=== PATIENT | female | born 1965 | race Native Hawaiian/Other Pacific Islander ===

== ENCOUNTER 2017-01-11 11:02 | Emergency (ER) | payer OTHER ==
[2017-01-11 11:08] VITALS: BP 120/76; PULSE 69; RESP 18; TEMP 97.9; O2SAT 100
--- NOTE | 2017-01-11 11:34 | C.PDOC ---
History Of Present Illness L ELBOW AREA PAIN X 1 DAY. WORSE W FLEXION, ROTATION. NO TRAUMA. PRIOR HO TENNIS ELBOW. LIMITED RELIEF W TYLENOL. NO SWELLING, REDNESS EXAM MILD DIST EXT L ELBOW REPRODUC PAIN W FLEXION, SUPINATION. NO TEND. ATRAUM. NO SWELL AROM WO DIFF SKIN WNL Time Seen by Provider: 01/11/17 11:22 Chief Complaint (Nursing): Upper Extremity Problem/Injury History Per: Patient History/Exam Limitations: no limitations Onset/Duration Of Symptoms: Days (1) Past Medical History Reviewed: Historical Data, Nursing Documentation, Vital Signs Vital Signs: Last Vital Signs Temp 97.9 F 01/11/17 11:05 Pulse 69 01/11/17 11:05 Resp 18 01/11/17 11:05 BP 120/76 01/11/17 11:05 Pulse Ox 100 01/11/17 11:36 - [facility] Procedures TETANUS TOXOID ADMINIST (08/15/14) Family History: States: No Known Family Hx - Social History Hx Tobacco Use: No Hx Alcohol Use: No Hx Substance Use: No - Immunization History Hx Tetanus Toxoid Vaccination: Yes Hx Influenza Vaccination: Yes Hx Pneumococcal Vaccination: Yes Review Of Systems Except As Marked, All Systems Reviewed And Found Negative. Musculoskeletal: Positive for: Other ((+) Left elbow pain ). Negative for: Neck Pain, Back Pain Neurological: Negative for: Weakness, Numbness Physical Exam - Physical Exam Appears: Non-toxic, In Acute Distress (Mild) Skin: Warm, Dry, No Rash Head: Atraumatic, Normacephalic Oral Mucosa: Moist Neck: Normal, Normal ROM, Supple Respiratory: Normal Breath Sounds Extremity: Capillary Refill (<2 secs), Other ((+) Left elbow reproducible pain with flexion and supination. No tenderness. No swelling. ) Neurological/Psych: Oriented x3, Normal Speech, Normal Motor ED Course And Treatment O2 Sat by Pulse Oximetry: 100 (RA) Pulse Ox Interpretation: Normal Medical Decision Making Medical Decision Making: PLAN: * Toradol IM Disposition Counseled Patient/Family Regarding: Diagnosis, Need For Followup, Rx Given - Disposition Referrals: YOUR,PMD [Other] Disposition: HOME/ ROUTINE Disposition Time: 11:34 Condition: IMPROVED Prescriptions: Naproxen 500 mg PO BID #30 tab Instructions: Tendinitis (ED) Forms: [employer] (Maltese), School Excuse, Work Excuse - Clinical Impression Clinical Impression: Tendonitis - Scribe Statement The provider has reviewed the documentation as recorded by the Scribe Ade Toribio Provider Attestation: All medical record entries made by the Vickieibe were at my direction and personally dictated by me. I have reviewed the chart and agree that the record accurately reflects my personal performance of the history, physical exam, medical decision making, and the department course for this patient. I have also personally directed, reviewed, and agree with the discharge instructions and disposition. Orthopedic Care Application Of:: [facility]
== END 2017-01-11 11:39 | disposition home or self-care (01) ==
LOC: C.ER 11:02
DX: M77.9 Enthesopathy, unspecified (principal)
CPT/HCPCS: 96372; 99285; J1885